=== PATIENT | male | born 1990 ===

== ENCOUNTER 2020-03-02 11:32 | Emergency (ER) | payer OTHER ==
[~2020-03-02] VITALS: Ht 185.4 cm; Wt 89.4 kg
== END 2020-03-02 15:53 | disposition home or self-care (01) ==
LOC: ER 11:32
DX: B34.9 Viral infection, unspecified (principal); Z03.818 Encounter for observation for suspected exposure to other biological agents ruled out; R51 Headache; H57.11 Ocular pain, right eye